=== PATIENT | male | born 1940 | race Caucasian/White ===

== ENCOUNTER 2021-08-31 10:19 | Inpatient (IN) | payer OTHER ==
[~2021-08-31] VITALS: Ht 170.2 cm; Wt 76.0 kg
[~2021-08-31 10:19] MED LIST: ATOR10TA PO; BUDE160A3 INH; DOCU-94 PO; FER325T PO; FINA5TAB4 PO; GABA300C11 PO; TAM04C PO
[2021-08-31 11:25] LABS: Red Cell Distribution Width 13.5 % (11.8-14.3)
[2021-08-31 11:27] LABS: Hematocrit 39.2 % (41.0-53.0); Hemoglobin 12.8 g/dL (13.5-17.5); Mean Corpuscular Hemoglobin 27.7 pg (28.0-32.0); Mean Corpuscular Hgb Conc. 32.7 g/dL (32.0-36.0); Mean Corpuscular Volume 84.8 fL (80.0-100.0); Red Blood Cells 4.63 10^6/uL (4.5-5.90); White Blood Cell 23.9 10^3/uL (4.4-10.8)
[2021-08-31 11:29] LABS: Basophils % (manual) 0 (0.0-2.0); Blast Cells 0; Eosinophils % (manual) 0 (0-7); Promyelocytes % 0; Reactive Lymphocytes 0
[2021-08-31 11:39] LABS: Cannabinoid Screen, Urine NEGATIVE (NEGATIVE); Urine Bacteria FEW /hpf (None Seen); Urine Blood 3+ /uL (Negative); Urine Hyaline Cast FEW /lpf (0 - 2); Urine Specific Gravity 1.012 (1.001-1.035); Urine WBC 44 /hpf (0 - 3); Urine WBC Clumps PRESENT /hpf (None Seen)
[2021-08-31 11:43] LABS: Alcohol, Urine < 3.0 mg/dL (0-10); Amphetamine Screen, Urine NEGATIVE (NEGATIVE); Barbiturate Scree,Urine NEGATIVE (NEGATIVE); Benzodiazephine Screen, Urine NEGATIVE (NEGATIVE); Cocaine Screen, Urine NEGATIVE (NEGATIVE); Opiate Scree,Urine NEGATIVE (NEGATIVE); Phencyclidine Screen, Urine NEGATIVE (NEGATIVE)
[2021-08-31 12:05] LABS: Albumin 3.1 g/dL (3.4-5.0); Anion Gap 17 (5-15); Blood Alcohol < 3.0 mg/dL (0-5); Calcium 9.2 mg/dL (8.5-10.1); Carbon Dioxide 14 mmol/L (21-32); Chloride 113 mmol/L (98-107); Glucose 153 mg/dL (74-106); Magnesium 3.9 mg/dL (1.6-2.6); Potassium 5.5 mmol/L (3.5-5.1); Sodium 144 mmol/L (136-145)
[2021-08-31 12:08] LABS: Alanine Aminotransferase 42 U/L (16-61); Alkaline Phosphatase 68 U/L (45-117); Aspartate Aminotransferase 34 U/L (15-37); Bilirubin, Total 0.4 mg/dL (0.2-1.0); GFR African American 7 mL/min; GFR Non-African American 6 mL/min; Total Protein 8.4 g/dL (6.4-8.2)
[2021-08-31 12:25] LABS: BUN/Creatinine Ratio 19.6
[2021-08-31 12:34] LABS: Band Neutrophils % (manual) 3; Blood Urea Nitrogen 188 mg/dL (7-18); Lymphocytes % (manual) 6 (10.0-50.0); Metamyelocytes % 2; Monocytes % (manual) 8 (0-12); Myelocytes % 1
[2021-08-31] MEDS ORDERED: ASCORBIC ACID 500 MG TAB PO ONE (12:45)
[2021-08-31] MEDS ORDERED: CHOLECALCIFEROL (VITD3) 2,000 UNIT CAP/TAB PO ONE (12:45)
[2021-08-31] MEDS ORDERED: AZITHROMYCIN 500MG/ 250ML 250 ML IV ONE (12:45)
[2021-08-31] MEDS ORDERED: ZINC SULFATE 220mg CAP or TAB PO ONE (12:45)
[2021-08-31] MEDS ORDERED: DexAMETHasone SOD PHOS 10MG/1ML VIAL INJ IV ONE (12:45)
[2021-08-31] MEDS ORDERED: cefTRIAXone 1GM/50ML D5W 50 ML IV ONE (12:45)
[2021-08-31] MEDS ORDERED: SODIUM CHLORIDE 0.9% 1,000 ML IV ONE (14:30)
[2021-08-31] MEDS ORDERED: MORPHINE SULFATE INJECTION 2 MG/ML SYRG IV PRN (14:30)
[2021-08-31] MEDS ORDERED: NITROGLYCERIN 0.4 MG SL TAB SL PRN (14:30)
[2021-08-31 14:52] LABS: INR 1.11 (0.9-1.15); Partial Thromboplastin Time 29.9 sec (23.6-33.0)
[2021-08-31 16:42] VITALS: BP 153/83
[2021-08-31] MEDS: SODIUM BICARBONATE 50ML VIAL 150 ML in D5W 5% 1,000 ML IV SCH (17:00)
[2021-08-31] MEDS ORDERED: FURO20TA3 PO (18:07)
[2021-08-31 21:20] VITALS: BP 167/65
[2021-08-31] MEDS ORDERED: BUMETANIDE 2.5mg/10ml (0.25 mg/ml) INJ IV ONE (22:00)
[2021-08-31 23:33] LABS: Potassium 5.5 mmol/L (3.5-5.1)
[2021-08-31 23:34] LABS: BUN/Creatinine Ratio 19.6; Calcium 9.5 mg/dL (8.5-10.1)
[2021-09-01] MEDS ORDERED: SODIUM BICARBONATE 8.4 % INJ 50ML VIAL IV ONE (00:15)
[2021-09-01 01:49] LABS: Protein, Urine 747.3 mg/dL (0.0-11.9)
[2021-09-01] MEDS: SODIUM BICARBONATE 50ML VIAL 150 ML in D5W 5% 1,000 ML IV SCH ×2 (04:30→07:09)
[2021-09-01] MEDS ORDERED: ALBUTEROL SULF HFA 90MCG INH 200DOSE IN SCH (04:45)
[2021-09-01 05:01] VITALS: BP 149/95
[2021-09-01] MEDS: ALBUTEROL SULF HFA 90MCG INH 200DOSE IN PRN (06:02)
[2021-09-01 08:15] VITALS: BP 153/83
[2021-09-01 08:39] VITALS: BP 153/102
[2021-09-01 09:05] LABS: Hematocrit 37.8 % (41.0-53.0); Red Cell Distribution Width 13.4 % (11.8-14.3)
[2021-09-01 09:07] LABS: Hemoglobin 12.2 g/dL (13.5-17.5); Mean Corpuscular Hemoglobin 26.6 pg (28.0-32.0); Mean Corpuscular Hgb Conc. 32.1 g/dL (32.0-36.0); Mean Corpuscular Volume 82.8 fL (80.0-100.0); Red Blood Cells 4.57 10^6/uL (4.5-5.90); White Blood Cell 24.1 10^3/uL (4.4-10.8)
[2021-09-01 09:16] LABS: Band Neutrophils % (manual) 0; Basophils % (manual) 0 (0.0-2.0); Blast Cells 0; Eosinophils % (manual) 0 (0-7); Metamyelocytes % 0; Myelocytes % 0; Promyelocytes % 0; Reactive Lymphocytes 0
[2021-09-01 09:17] LABS: Albumin 2.7 g/dL (3.4-5.0); Potassium 4.6 mmol/L (3.5-5.1)
[2021-09-01 09:26] LABS: BUN/Creatinine Ratio 20.1; Bilirubin, Direct 0.1 mg/dL (0-0.2); Bilirubin, Total 0.3 mg/dL (0.2-1.0); Phosphorus 6.8 mg/dL (2.5-4.90); Total Protein 7.5 g/dL (6.4-8.2); Uric Acid 11.2 mg/dL (3.5-7.2)
[2021-09-01] MEDS ORDERED: cefTRIAXone 1GM/50ML D5W 50 ML IV SCH (10:00)
[2021-09-01] MEDS ORDERED: ENOXAPARIN SOD 80 MG/0.8ML SYRINGE SC SCH (10:00)
[2021-09-01] MEDS: DexAMETHasone SOD PHOS 10MG/1ML VIAL INJ IV SCH (10:52)
[2021-09-01] MEDS: HEPARIN SODIUM (PORCINE) 5000 UNITS/ML 1ML VIAL SC SCH ×2 (10:53→22:00)
[2021-09-01 11:25] VITALS: BP 167/65
[2021-09-01 13:19] LABS: Lymphocytes % (manual) 2 (10.0-50.0); Monocytes % (manual) 7 (0-12)
[2021-09-01 16:04] LABS: Albumin 2.5 g/dL (3.4-5.0); Calcium 8.4 mg/dL (8.5-10.1); Potassium 4.2 mmol/L (3.5-5.1)
[2021-09-01 16:09] LABS: Hematocrit 33.8 % (41.0-53.0); Hemoglobin 10.9 g/dL (13.5-17.5); Mean Corpuscular Hemoglobin 26.5 pg (28.0-32.0); Mean Corpuscular Hgb Conc. 32.2 g/dL (32.0-36.0); Mean Corpuscular Volume 82.3 fL (80.0-100.0); Red Blood Cells 4.11 10^6/uL (4.5-5.90); Red Cell Distribution Width 13.2 % (11.8-14.3); White Blood Cell 25.3 10^3/uL (4.4-10.8)
[2021-09-01 16:10] LABS: BUN/Creatinine Ratio 20.4; Bilirubin, Total 0.2 mg/dL (0.2-1.0); Total Protein 6.7 g/dL (6.4-8.2)
[2021-09-01] MEDS ORDERED: SOD CHL 0.45% 1,000 ML IV ONE (16:15)
[2021-09-01 16:30] LABS: Basophils % (manual) 0 (0.0-2.0); Blast Cells 0; Eosinophils % (manual) 0 (0-7); Promyelocytes % 0; Reactive Lymphocytes 0
[2021-09-01 17:00] VITALS: BP 117/82
[2021-09-01 17:55] LABS: Band Neutrophils % (manual) 3; Lymphocytes % (manual) 2 (10.0-50.0); Metamyelocytes % 3; Monocytes % (manual) 1 (0-12); Myelocytes % 2
[2021-09-01] MEDS: MAGNESIUM SULFATE 1GM/100ML 100 ML IV SCH ×2 (21:55→23:02)
[2021-09-01 22:25] VITALS: BP 135/57
[2021-09-02 05:00] VITALS: BP 136/88
[2021-09-02] MEDS: ALBUTEROL SULF HFA 90MCG INH 200DOSE IN PRN ×2 (05:47→18:17)
[2021-09-02 06:32] LABS: Hematocrit 34.6 % (41.0-53.0); Hemoglobin 11.2 g/dL (13.5-17.5); Mean Corpuscular Hemoglobin 27.1 pg (28.0-32.0); Mean Corpuscular Hgb Conc. 32.4 g/dL (32.0-36.0); Mean Corpuscular Volume 83.7 fL (80.0-100.0); Red Blood Cells 4.13 10^6/uL (4.5-5.90); Red Cell Distribution Width 13.3 % (11.8-14.3); White Blood Cell 26.7 10^3/uL (4.4-10.8)
[2021-09-02 06:41] LABS: Basophils % (manual) 0 (0.0-2.0); Blast Cells 0; Eosinophils % (manual) 0 (0-7); Myelocytes % 0; Promyelocytes % 0; Reactive Lymphocytes 0
[2021-09-02 06:47] LABS: Albumin 2.5 g/dL (3.4-5.0); Calcium 8.5 mg/dL (8.5-10.1); Magnesium 3.5 mg/dL (1.6-2.6); Potassium 4.4 mmol/L (3.5-5.1)
[2021-09-02 07:03] LABS: Bilirubin, Total 0.3 mg/dL (0.2-1.0); CRP High Sensitivity 5.62 mg/dL (< 0.3); Total Protein 6.7 g/dL (6.4-8.2)
[2021-09-02 07:21] LABS: Band Neutrophils % (manual) 2; Lymphocytes % (manual) 3 (10.0-50.0); Metamyelocytes % 1; Monocytes % (manual) 2 (0-12)
[2021-09-02 07:52] LABS: BUN/Creatinine Ratio 20.4
[2021-09-02 08:30] VITALS: BP 147/86
[2021-09-02] MEDS: MEROPENEM 500MG IVPB 50 ML IV SCH (10:03)
[2021-09-02] MEDS: DexAMETHasone SOD PHOS 10MG/1ML VIAL INJ IV SCH (10:10)
[2021-09-02] MEDS: HEPARIN SODIUM (PORCINE) 5000 UNITS/ML 1ML VIAL SC SCH ×2 (10:13→23:04)
[2021-09-02 12:30] VITALS: BP 153/91
[2021-09-02 16:36] VITALS: BP 155/91
[2021-09-02 21:54] VITALS: BP 149/85
[2021-09-03 06:22] VITALS: BP 133/76
[2021-09-03] MEDS: ALBUTEROL SULF HFA 90MCG INH 200DOSE IN PRN (08:41)
[2021-09-03 09:16] VITALS: BP 146/94
[2021-09-03 09:31] LABS: Hematocrit 38.2 % (41.0-53.0); Hemoglobin 11.7 g/dL (13.5-17.5); Mean Corpuscular Hemoglobin 26.5 pg (28.0-32.0); Mean Corpuscular Hgb Conc. 30.8 g/dL (32.0-36.0); Mean Corpuscular Volume 86.2 fL (80.0-100.0); Red Blood Cells 4.43 10^6/uL (4.5-5.90); Red Cell Distribution Width 13.6 % (11.8-14.3); White Blood Cell 23.5 10^3/uL (4.4-10.8)
[2021-09-03 09:35] LABS: Basophils % (manual) 0 (0.0-2.0); Blast Cells 0; Eosinophils % (manual) 0 (0-7); Myelocytes % 0; Promyelocytes % 0; Reactive Lymphocytes 0
[2021-09-03 09:37] LABS: Albumin 2.6 g/dL (3.4-5.0); Calcium 8.5 mg/dL (8.5-10.1); Potassium 4.8 mmol/L (3.5-5.1)
[2021-09-03 09:40] LABS: BUN/Creatinine Ratio 21.5; Bilirubin, Total 0.3 mg/dL (0.2-1.0); Total Protein 6.8 g/dL (6.4-8.2)
[2021-09-03] MEDS: MEROPENEM 500MG IVPB 50 ML IV SCH (10:24)
[2021-09-03] MEDS: HEPARIN SODIUM (PORCINE) 5000 UNITS/ML 1ML VIAL SC SCH ×2 (10:25→21:27)
[2021-09-03] MEDS: SODIUM BICARBONATE 50ML VIAL 50 ML in D5W 5% 1,000 ML IV SCH ×2 (12:16→21:11)
[2021-09-03 12:53] LABS: Band Neutrophils % (manual) 4; Lymphocytes % (manual) 3 (10.0-50.0); Metamyelocytes % 1; Monocytes % (manual) 4 (0-12)
[2021-09-03 13:09] VITALS: BP 152/85
[2021-09-03 17:17] VITALS: BP 145/85
[2021-09-03 21:00] VITALS: BP 144/84
[2021-09-04 07:33] LABS: Hemoglobin 12.3 g/dL (13.5-17.5); Mean Corpuscular Hemoglobin 26.5 pg (28.0-32.0); Mean Corpuscular Hgb Conc. 30.8 g/dL (32.0-36.0); Red Blood Cells 4.65 10^6/uL (4.5-5.90); Red Cell Distribution Width 13.5 % (11.8-14.3); White Blood Cell 24.9 10^3/uL (4.4-10.8)
[2021-09-04 07:36] LABS: Albumin 2.7 g/dL (3.4-5.0); Calcium 8.7 mg/dL (8.5-10.1); Potassium 4.7 mmol/L (3.5-5.1)
[2021-09-04 07:39] LABS: Basophils % (manual) 0 (0.0-2.0); Blast Cells 0; Eosinophils % (manual) 0 (0-7); Metamyelocytes % 0; Myelocytes % 0; Promyelocytes % 0; Reactive Lymphocytes 0
[2021-09-04 07:40] LABS: Bilirubin, Total 0.4 mg/dL (0.2-1.0); Total Protein 7.2 g/dL (6.4-8.2)
[2021-09-04] MEDS: SODIUM BICARBONATE 50ML VIAL 50 ML in D5W 5% 1,000 ML IV SCH ×2 (07:45→12:31)
[2021-09-04 07:57] LABS: BUN/Creatinine Ratio 22.6
[2021-09-04 08:10] LABS: CRP High Sensitivity 2.77 mg/dL (< 0.3)
[2021-09-04 08:30] VITALS: BP 144/84
[2021-09-04] MEDS ORDERED: CEPH-509 PO (09:18)
[2021-09-04] MEDS ORDERED: METO25TA36 PO (09:19)
[2021-09-04] MEDS ORDERED: CEFEPIME 1 GM in SODIUM CHL 0.9% 50 ML IV SCH (10:00)
[2021-09-04] MEDS ORDERED: CEFTRIAXONE SODIUM 2 GM in D5W 5% 50 ML IV SCH (10:00)
[2021-09-04 10:20] LABS: Band Neutrophils % (manual) 4; Lymphocytes % (manual) 5 (10.0-50.0); Monocytes % (manual) 6 (0-12)
[2021-09-04 11:31] VITALS: BP 146/94
[2021-09-04] MEDS: HEPARIN SODIUM (PORCINE) 5000 UNITS/ML 1ML VIAL SC SCH (11:53)
[2021-09-04 13:00] VITALS: BP 156/89
[2021-09-04] MEDS: ALBUTEROL SULF HFA 90MCG INH 200DOSE IN PRN (15:28)
[2021-09-05] MEDS ORDERED: CEFEPIME 1 GM in SODIUM CHL 0.9% 50 ML IV SCH (10:00)
== END 2021-09-04 16:12 | disposition home or self-care (01) | DRG 871 ==
LOC: ER 10:19 → EDBD 10:19 → EAST 14:45 → TELE-E-ADS 09-01 03:13 → TELE-EAST 09-04 04:10
PROVIDERS: ADMIT Internal Medicine; ATTEND Internal Medicine
DX: A41.89 Other specified sepsis (principal); U07.1 COVID-19; G93.41 Metabolic encephalopathy; J12.82 Pneumonia due to coronavirus disease 2019; J96.01 Acute respiratory failure with hypoxia; I21.4 Non-ST elevation (NSTEMI) myocardial infarction; E44.1 Mild protein-calorie malnutrition; E87.1 Hypo-osmolality and hyponatremia; N17.9 Acute kidney failure, unspecified; N13.6 Pyonephrosis; N18.4 Chronic kidney disease, stage 4 (severe); E87.5 Hyperkalemia; R79.89 Other specified abnormal findings of blood chemistry; E86.0 Dehydration; I12.9 Hypertensive chronic kidney disease with stage 1 through stage 4 chronic kidney disease, or unspecified chronic kidney disease; J45.909 Unspecified asthma, uncomplicated; N40.1 Benign prostatic hyperplasia with lower urinary tract symptoms; R33.8 Other retention of urine; J01.90 Acute sinusitis, unspecified; D18.1 Lymphangioma, any site; Z79.51 Long term (current) use of inhaled steroids; Z79.899 Other long term (current) drug therapy; Z85.038 Personal history of other malignant neoplasm of large intestine; Z86.011 Personal history of benign neoplasm of the brain; Z87.442 Personal history of urinary calculi; Z87.891 Personal history of nicotine dependence; Z90.49 Acquired absence of other specified parts of digestive tract; Z93.3 Colostomy status
CPT/HCPCS: 36415; 36600; 70450; 71045; 74176; 76775; 80048; 80053; 80076; 80307; 80320; 81001; 82550; 82570; 82805; 83605; 83735; 83874; 84100; 84156; 84300; 84443; 84484; 84550; 85007; 85027; 85379; 85610; 85730; 86141; 87040; 87086; 87340; 87426; 93005; 93306; 93970; 94640; 96365; 96367; 96375; G0378; J0696; J1100; J2185; J7060

== ENCOUNTER 2022-09-24 17:58 | Inpatient (IN) | payer OTHER ==
[2022-09-24] VITALS (10 sets, daily range): BP systolic 74–125; BP diastolic 29–68
[~2022-09-24] VITALS: Ht 157.5 cm; Wt 64.0 kg
[~2022-09-24 17:58] MED LIST changes: +CEPH-509 PO; -GABA300C11 PO; +METO25TA36 PO
[2022-09-24] MEDS ORDERED: MIDAZOLAM DRIP 50 mg/50mL 50 ML IV ONE (18:09)
[2022-09-24] MEDS ORDERED: SODIUM CHLORIDE 0.9% 1,000 ML IVB ONE (18:15)
[2022-09-24] MEDS: MIDAZOLAM DRIP 50 mg/50mL 50 ML IV SCH (18:41)
[2022-09-24 19:09] LABS: Red Cell Distribution Width 15.3 % (11.8-14.3)
[2022-09-24 19:11] LABS: Mean Corpuscular Hemoglobin 27.6 pg (28.0-32.0); Mean Corpuscular Hgb Conc. 30.3 g/dL (32.0-36.0); Mean Corpuscular Volume 91.1 fL (80.0-100.0); Red Blood Cells 2.19 10^6/uL (4.5-5.90); White Blood Cell 19.7 10^3/uL (4.4-10.8)
[2022-09-24 19:12] LABS: Urine Bacteria FEW /hpf (None Seen); Urine Blood Negative /uL (Negative); Urine Hyaline Cast FEW /lpf (0 - 2); Urine Specific Gravity 1.012 (1.001-1.035); Urine WBC 8 /hpf (0 - 3)
[2022-09-24 19:17] LABS: Partial Thromboplastin Time 30.2 sec (24.6-33.4)
[2022-09-24 19:30] LABS: Basophils % (manual) 0 (0.0-2.0); Blast Cells 0; Eosinophils % (manual) 0 (0-7); Metamyelocytes % 0; Myelocytes % 0; Promyelocytes % 0; Reactive Lymphocytes 0
[2022-09-24 19:34] LABS: Lactic Acid w/Reflex 5.8 mmol/L (0.4-2.0)
[2022-09-24 19:36] LABS: Albumin 2.9 g/dL (3.4-5.0); Anion Gap 26 (5-15); Calcium 8.8 mg/dL (8.5-10.1); Chloride 116 mmol/L (98-107); Glucose 113 mg/dL (74-106); Magnesium 3.5 mg/dL (1.6-2.6); Sodium 147 mmol/L (136-145)
[2022-09-24] MEDS ORDERED: cefTRIAXone 1GM/50ML D5W 50 ML IV ONE (19:45)
[2022-09-24 19:50] LABS: Alanine Aminotransferase 8 U/L (16-61); Alkaline Phosphatase 48 U/L (45-117); Aspartate Aminotransferase < 3 U/L (15-37); Bilirubin, Total 0.5 mg/dL (0.2-1.0); GFR African American 3 mL/min; GFR Non-African American 3 mL/min; Total Protein 5.7 g/dL (6.4-8.2)
[2022-09-24 19:54] LABS: Band Neutrophils % (manual) 3; Lymphocytes % (manual) 11 (10.0-50.0); Monocytes % (manual) 1 (0-12)
[2022-09-24] MEDS ORDERED: IOHEXOL 350 MG/ML 100ML IJ ONE (19:57)
[2022-09-24 19:59] LABS: Blood Urea Nitrogen 215 mg/dL (7-18); Carbon Dioxide 5 mmol/L (21-32); Potassium 7.1 mmol/L (3.5-5.1)
[2022-09-24] MEDS ORDERED: PANTOPRAZOLE 80 MG in SODIUM CHL 0.9% 100 ML IV ONE (21:30)
[2022-09-24] MEDS ORDERED: PANTOPRAZOLE 40mg/50ML NS AE 50 ML IV ONE (21:30)
[2022-09-24] MEDS ORDERED: OCTREOTIDE ACETATE 100 MCG in SODIUM CHL 0.9% 50 ML IV ONE (21:30)
[2022-09-24] MEDS: NOREPINEPHRINE 8 MG/250ML KIT 250 ML IV SCH (22:04)
[2022-09-24] MEDS ORDERED: NOREPINEPHRINE 8 MG/250ML KIT 250 ML IV ONE (22:04)
[2022-09-24] MEDS ORDERED: OCTREOTIDE ACETATE 100 MCG/ML VL ONE (22:07)
[2022-09-24] MEDS ORDERED: PANTOPRAZOLE 40 MG/10 ML VIAL INJ IV ONE (22:07)
[2022-09-24] MEDS ORDERED: OCTREOTIDE ACETATE 500 MCG/ML VL ONE (22:07)
[2022-09-24] MEDS ORDERED: SODIUM BICARBONATE 8.4 % INJ 50ML VIAL IV ONE (22:15)
[2022-09-24] MEDS ORDERED: SODIUM BICARBONATE 8.4% INJ 50ML SYRINGE ONE ×2 (22:16→22:25)
[2022-09-24] MEDS ORDERED: ALBUMIN 25% 100 ML IV ONE (22:30)
[2022-09-24] MEDS: OCTREOTIDE ACETATE 500 MCG in SODIUM CHL 0.9% 99 ML IV SCH (23:46)
[2022-09-25] VITALS (40 sets, daily range): BP systolic 91–167; BP diastolic 27–71
[2022-09-25 00:43] LABS: Alanine Aminotransferase 10 U/L (16-61); Albumin 2.9 g/dL (3.4-5.0); Anion Gap 18 (5-15); Aspartate Aminotransferase < 3 U/L (15-37); Calcium 8.5 mg/dL (8.5-10.1); Carbon Dioxide 12 mmol/L (21-32); Chloride 116 mmol/L (98-107); GFR African American 4 mL/min; GFR Non-African American 3 mL/min; Glucose 97 mg/dL (74-106); Sodium 146 mmol/L (136-145)
[2022-09-25 00:46] LABS: Alkaline Phosphatase 51 U/L (45-117); BUN/Creatinine Ratio 12.2; Bilirubin, Total 0.5 mg/dL (0.2-1.0); Total Protein 6.3 g/dL (6.4-8.2)
[2022-09-25 00:52] LABS: Blood Urea Nitrogen 193 mg/dL (7-18); Potassium 6.2 mmol/L (3.5-5.1)
[2022-09-25] MEDS ORDERED: CALCIUM GLUC 1,000mg/50ml-NS 50 ML IV ONE (01:00)
[2022-09-25] MEDS ORDERED: DEXTROSE (50%) 50ML SYRG IV ONE (01:00)
[2022-09-25] MEDS ORDERED: InsuLIN REG 1unit/0.01ml Soln (100units/ml) IV ONE (01:00)
[2022-09-25] MEDS ORDERED: SOD CHL 0.45% 1,000 ML IV ONE (01:15)
[2022-09-25] MEDS ORDERED: MORPHINE SULFATE INJ 2 MG/ml SYRG IV PRN (01:15)
[2022-09-25] MEDS ORDERED: NITROGLYCERIN 0.4 MG SL TAB SL PRN (01:15)
[2022-09-25] MEDS ORDERED: PANTOPRAZOLE 40 MG/10 ML VIAL INJ IV ONE (01:30)
[2022-09-25] MEDS: SODIUM BICARBONATE 50ML VIAL 50 ML in SOD CHL 0.45% 1,000 ML IV SCH ×2 (01:36→13:51)
[2022-09-25 03:07] LABS: Basophils # (auto) 0.2 10 ^3/uL (0-0.2); Basophils % (auto) 0.9 % (0.0-2.0); Eosinophils # (auto) 0 10 ^3/uL (0-0.8); Hematocrit 28.3 % (41.0-53.0); Hemoglobin 9.2 g/dL (13.5-17.5); Lymphocytes # (auto) 0.6 10 ^3/uL (0.4-5.4); Lymphocytes % (auto) 2.9 % (10.0-50.0); Mean Corpuscular Hemoglobin 29.8 pg (28.0-32.0); Mean Corpuscular Hgb Conc. 32.4 g/dL (32.0-36.0); Mean Corpuscular Volume 92.1 fL (80.0-100.0); Monocytes # (auto) 1.3 10 ^3/uL (0-1.3); Monocytes % (auto) 6.5 % (0.0-12.0); Neutrophils # (auto) 17.8 10 ^3/uL (1.6-8.6); Neutrophils % (auto) 89.7 % (37.0-80.0); Red Blood Cells 3.07 10^6/uL (4.5-5.90); White Blood Cell 19.9 10^3/uL (4.4-10.8)
[2022-09-25] MEDS ORDERED: ALBUTEROL MEDNEB 2.5 mg/3ml NEB ONE ×2 (05:41→11:53)
[2022-09-25] MEDS: ALBUTEROL SULF 2.5 MG/0.5ML(0.5%) NEB SOLN NEB SCH ×3 (06:22→18:38)
[2022-09-25] MEDS: IPRATROPIUM BROM 0.5 MG/2.5ML INH SOL NEB SCH ×3 (06:22→18:39)
[2022-09-25 07:46] LABS: Potassium 5.5 mmol/L (3.5-5.1)
[2022-09-25 07:47] LABS: Basophils # (auto) 0 10 ^3/uL (0-0.2); Basophils % (auto) 0.1 % (0.0-2.0); Eosinophils # (auto) 0 10 ^3/uL (0-0.8); Hematocrit 25.6 % (41.0-53.0); Hemoglobin 8.5 g/dL (13.5-17.5); Lymphocytes # (auto) 0.3 10 ^3/uL (0.4-5.4); Lymphocytes % (auto) 1.9 % (10.0-50.0); Mean Corpuscular Hemoglobin 29.1 pg (28.0-32.0); Mean Corpuscular Hgb Conc. 33.2 g/dL (32.0-36.0); Mean Corpuscular Volume 87.9 fL (80.0-100.0); Monocytes % (auto) 6.4 % (0.0-12.0); Neutrophils # (auto) 14.7 10 ^3/uL (1.6-8.6); Neutrophils % (auto) 91.6 % (37.0-80.0); Nucleated Red Blood Cells % 0.1 %; Red Blood Cells 2.91 10^6/uL (4.5-5.90); Red Cell Distribution Width 16.8 % (11.8-14.3)
[2022-09-25 07:49] LABS: BUN/Creatinine Ratio 12.5
[2022-09-25 07:51] LABS: Bilirubin, Total 0.5 mg/dL (0.2-1.0); Total Protein 5.5 g/dL (6.4-8.2)
[2022-09-25] MEDS: OCTREOTIDE ACETATE 500 MCG in SODIUM CHL 0.9% 99 ML IV SCH ×2 (08:39→17:30)
[2022-09-25] MEDS ORDERED: VANCOMYCIN PER PHARMACY 0 MG IV SCH (08:45)
[2022-09-25] MEDS ORDERED: SODIUM BICARBONATE 8.4 % INJ 50ML VIAL IV ONE (09:15)
[2022-09-25] MEDS ORDERED: VANCOMYCIN 1GM/250ML 250 ML IV ONE (09:45)
[2022-09-25] MEDS: PROPOFOL 100 ML IV SCH ×2 (10:11→22:40)
[2022-09-25] MEDS: ALBUMIN 25% 100 ML IV SCH ×2 (10:16→16:24)
[2022-09-25] MEDS: PANTOPRAZOLE 40 MG/10 ML VIAL INJ IV SCH ×2 (11:33→22:00)
[2022-09-25] MEDS: cefTRIAXone 1GM/50ML D5W 50 ML IV SCH (11:34)
[2022-09-25] MEDS ORDERED: CALCIUM ACETATE 667 MG CAP NG SCH (14:00)
[2022-09-25] MEDS: CALCIUM ACETATE 667 MG CAP NG SCH ×3 (14:56→22:00)
[2022-09-25] MEDS: MIDAZOLAM DRIP 50 mg/50mL 50 ML IV SCH ×3 (18:45→23:30)
[2022-09-25 21:42] LABS: Sodium Urine 69 mmol/L (40-220)
[2022-09-25 21:44] LABS: Creatinine, Urine 38 mg/dL (30.0-125.0)
[2022-09-25] MEDS: NOREPINEPHRINE 8 MG/250ML KIT 250 ML IV SCH (22:39)
[2022-09-26] VITALS (35 sets, daily range): BP systolic 96–128; BP diastolic 31–53
[2022-09-26] MEDS: ALBUMIN 25% 100 ML IV SCH
[2022-09-26] MEDS: ALBUTEROL SULF 2.5 MG/0.5ML(0.5%) NEB SOLN NEB SCH ×2 (00:28→06:41)
[2022-09-26] MEDS: IPRATROPIUM BROM 0.5 MG/2.5ML INH SOL NEB SCH ×2 (00:28→06:41)
[2022-09-26] MEDS ORDERED: ALBUMIN 25% 100 ML IV SCH (02:30)
[2022-09-26] MEDS: MIDAZOLAM DRIP 50 mg/50mL 50 ML IV SCH (02:51)
[2022-09-26] MEDS: OCTREOTIDE ACETATE 500 MCG in SODIUM CHL 0.9% 99 ML IV SCH (03:00)
[2022-09-26 05:42] LABS: Albumin 3.4 g/dL (3.4-5.0); Anion Gap 15 (5-15); Calcium 7.3 mg/dL (8.5-10.1); Carbon Dioxide 17 mmol/L (21-32); Chloride 116 mmol/L (98-107); Potassium 4.3 mmol/L (3.5-5.1); Sodium 148 mmol/L (136-145)
[2022-09-26 05:46] LABS: Alanine Aminotransferase 9 U/L (16-61); Aspartate Aminotransferase < 3 U/L (15-37); BUN/Creatinine Ratio 11.9; GFR African American 5 mL/min; GFR Non-African American 4 mL/min; Total Protein 5.2 g/dL (6.4-8.2)
[2022-09-26 05:54] LABS: Alkaline Phosphatase 31 U/L (45-117); Bilirubin, Total 0.4 mg/dL (0.2-1.0)
[2022-09-26 06:06] LABS: Blood Urea Nitrogen 159 mg/dL (7-18); Glucose 47 mg/dL (74-106)
[2022-09-26] MEDS ORDERED: ALBUTEROL MEDNEB 2.5 mg/3ml NEB ONE ×2 (06:18→11:21)
[2022-09-26] MEDS ORDERED: DEXTROSE (50%) 50ML SYRG IV ONE (06:30)
[2022-09-26] MEDS: CALCIUM ACETATE 667 MG CAP NG SCH (06:34)
[2022-09-26 07:58] LABS: Basophils # (auto) 0 10 ^3/uL (0-0.2); Basophils % (auto) 0.2 % (0.0-2.0); Eosinophils # (auto) 0 10 ^3/uL (0-0.8); Lymphocytes # (auto) 0.2 10 ^3/uL (0.4-5.4); Mean Corpuscular Hemoglobin 29.6 pg (28.0-32.0); Monocytes # (auto) 0.3 10 ^3/uL (0-1.3); White Blood Cell 3.8 10^3/uL (4.4-10.8)
[2022-09-26 08:01] LABS: Eosinophils % (auto) 0.6 % (0.0-7.0); Hematocrit 18.9 % (41.0-53.0); Lymphocytes % (auto) 5.8 % (10.0-50.0); Mean Corpuscular Hgb Conc. 34.2 g/dL (32.0-36.0); Mean Corpuscular Volume 86.7 fL (80.0-100.0); Monocytes % (auto) 8.9 % (0.0-12.0); Neutrophils # (auto) 3.3 10 ^3/uL (1.6-8.6); Neutrophils % (auto) 84.5 % (37.0-80.0); Nucleated Red Blood Cells % 0.6 %; Red Blood Cells 2.18 10^6/uL (4.5-5.90); Red Cell Distribution Width 16.7 % (11.8-14.3)
[2022-09-26 08:22] LABS: Hemoglobin 6.5 g/dL (13.5-17.5)
[2022-09-26 09:05] LABS: Magnesium 2.3 mg/dL (1.6-2.6); Phosphorus 7.6 mg/dL (2.5-4.90)
[2022-09-26] MEDS ORDERED: SODIUM BICARBONATE 8.4 % INJ 50ML VIAL IV ONE (09:15)
[2022-09-26] MEDS: cefTRIAXone 1GM/50ML D5W 50 ML IV SCH (10:04)
[2022-09-26] MEDS: PANTOPRAZOLE 40 MG/10 ML VIAL INJ IV SCH (10:05)
[2022-09-26] MEDS ORDERED: LORazepam 2MG/ML-1ML VIAL ONE (12:08)
[2022-09-26] MEDS ORDERED: MORPHINE SULFATE INJ 2 MG/ml SYRG ONE (12:08)
== END 2022-09-26 15:50 | DRG 871 ==
LOC: EDBD 17:58 → ER 17:58 → TELE 09-25 01:30 → ICU CENTRL 09-25 17:10
PROVIDERS: ADMIT Internal Medicine; ATTEND Internal Medicine
PROC: 5A1945Z Respiratory Ventilation, 24-96 Consecutive Hours (ICD-10-PCS; 2022-09-24)
PROC: 0BH17EZ Insertion of Endotracheal Airway into Trachea, Via Natural or Artificial Opening (ICD-10-PCS; 2022-09-24)
PROC: 30233N1 Transfusion of Nonautologous Red Blood Cells into Peripheral Vein, Percutaneous Approach (ICD-10-PCS; 2022-09-24)
PROC: 06HY33Z Insertion of Infusion Device into Lower Vein, Percutaneous Approach (ICD-10-PCS; principal; 2022-09-25)
PROC: 30243K1 Transfusion of Nonautologous Frozen Plasma into Central Vein, Percutaneous Approach (ICD-10-PCS; 2022-09-25)
DX: A41.9 Sepsis, unspecified organism (principal); J96.21 Acute and chronic respiratory failure with hypoxia; R65.21 Severe sepsis with septic shock; I13.2 Hypertensive heart and chronic kidney disease with heart failure and with stage 5 chronic kidney disease, or end stage renal disease; K92.2 Gastrointestinal hemorrhage, unspecified; N17.9 Acute kidney failure, unspecified; N18.5 Chronic kidney disease, stage 5; N39.0 Urinary tract infection, site not specified; Z20.822 Contact with and (suspected) exposure to COVID-19; I46.9 Cardiac arrest, cause unspecified; D64.9 Anemia, unspecified; E86.0 Dehydration; E87.5 Hyperkalemia; I50.9 Heart failure, unspecified; R56.9 Unspecified convulsions; J44.9 Chronic obstructive pulmonary disease, unspecified; Z93.3 Colostomy status; Z91.15 Patient's noncompliance with renal dialysis; Z86.16 Personal history of COVID-19; Z85.841 Personal history of malignant neoplasm of brain; Z85.038 Personal history of other malignant neoplasm of large intestine; Z74.01 Bed confinement status; Z87.01 Personal history of pneumonia (recurrent)
CPT/HCPCS: 36415; 36556; 36600; 70450; 71045; 71260; 74177; 76775; 80053; 80202; 81001; 82306; 82570; 82805; 82962; 83605; 83735; 83970; 84100; 84156; 84300; 84484; 85007; 85025; 85027; 85610; 85730; 86850; 86900; 86901; 86920; 87040; 87070; 87077; 87081; 87186; 87205; 87426; 93005; 93306; 94002; 94003; 94640; 96365; 96366; 96367; 96368; 96375; 96376; 99291; C9113; G0378; J0696; J1815; J2250; J2704; P9047